=== PATIENT | male | born 1985 ===

== ENCOUNTER 2018-12-21 09:41 | Emergency (ER) | payer OTHER ==
--- NOTE | 2018-12-21 09:52 | EDM.PDOC ---
ED HPI GENERAL MEDICAL PROBLEM - General Chief Complaint: Syncope Stated Complaint: LIGHT HEADED Time Seen by Provider: 12/21/18 09:52 - History of Present Illness INITIAL COMMENTS - FREE TEXT/NARRATIVE: Patient had developed some lightheadedness and thought he might pass out. This occurred around 8:00 this morning. He still feels a little lightheaded. He' s been under a lot of stress and at times notice some tingling down his arms. He denies chest pain but has palpitations with this. No breathing difficulties or shortness of breath. Patient has not had symptoms like this in the past he denies recent illness he has not had any fevers or chills or other suggestive symptoms he is not on any routine medications. - Related Data Allergies Allergy/AdvReac Type Severity Reaction Status Date / Time chocolate flavor Allergy Blisters Verified 12/21/18 09:46 Past Medical History Cardiovascular History: Reports: Other (See Below) Other Cardiovascular History: SVT Psychiatric History: Reports: Anxiety - Past Surgical History Musculoskeletal Surgical History: Reports: Other (See Below) Other Musculoskeletal Surgeries/Procedures:: left middle finger bone graft.; osteomyelitis Social & Family History - Family History Family Medical History: Noncontributory - Caffeine Use Caffeine Use: Reports: None ED ROS GENERAL - Review of Systems Review Of Systems: See Below Constitutional: Reports: No Symptoms HEENT: Reports: No Symptoms Respiratory: Reports: No Symptoms Cardiovascular: Reports: Palpitations Endocrine: Reports: No Symptoms GI/Abdominal: Reports: No Symptoms : Reports: No Symptoms Neurological: Reports: Other (Lightheadedness) Psychiatric: Reports: Anxiety - Physical Exam Exam: See Below Exam Limited By: No Limitations General Appearance: Alert, No Apparent Distress Eye Exam: Bilateral Eye: Normal Inspection Ears: Normal External Exam, Normal Canal, Hearing Grossly Normal, Normal TMs Nose: Normal Inspection, Normal Mucosa, No Blood Throat/Mouth: Normal Inspection, Normal Lips, Normal Teeth, Normal Gums, Normal Oropharynx, Normal Voice, No Airway Compromise Head Exam: Atraumatic, Normocephalic Neck: Normal Inspection, Supple, Non-Tender, Full Range of Motion. No: Limited Range of Motion, Lymphadenopathy (L), Lymphadenopathy (R), Tender Lateral, Tender Midline Respiratory/Chest: No Respiratory Distress, Lungs Clear, Normal Breath Sounds Cardiovascular: Regular Rate, Rhythm, No Edema, No Murmur GI/Abdominal: Normal Bowel Sounds, Soft, Non-Tender Neuro Exam (Abbreviated): Alert, Oriented Back Exam: Normal Inspection. No: CVA Tenderness (L), CVA Tenderness (R) Extremities: Normal Inspection, No Pedal Edema Psychiatric: Normal Affect, Normal Mood, Anxious (Mild) Course - Vital Signs Last Recorded V/S: Last Vital Signs Temp 36.7 C 12/21/18 09:46 Pulse 88 12/21/18 09:46 Resp 15 12/21/18 09:46 BP 131/73 12/21/18 09:46 Pulse Ox 97 12/21/18 09:46 - Orders/Labs/Meds Orders: Active Orders 24 hr Category Date Time Status EKG Documentation Completion [RC] STAT Care 12/21/18 10:12 Active Labs: Laboratory Tests 12/21/18 12/21/18 Range/Units 10:36 10:36 WBC 14.99 H (4.23-9.07) K/mm3 RBC 4.82 (4.63-6.08) M/mm3 Hgb 14.5 (13.7-17.5) gm/L Hct 43.3 (40.1-51.0) % MCV 89.8 (79.0-92.2) fl MCH 30.1 (25.7-32.2) pg MCHC 33.5 (32.2-35.5) g/dl RDW Std Deviation 41.2 (35.1-43.9) fL Plt Count 239 (163-337) K/mm3 MPV 11.2 (9.4-12.3) fl Neutrophils % (Manual) 67 H (40-60) % Band Neutrophils % 0 (0-10) % Lymphocytes % (Manual) 23 (20-40) % Atypical Lymphs % 0 % Monocytes % (Manual) 5 (2-10) % Eosinophils % (Manual) 5 (0.8-7.0) % Basophils % (Manual) 0 L (0.2-1.2) Platelet Estimate Adequate RBC Morph Comment Normal Sodium 144 (136-145) mEq/L Potassium 3.8 (3.5-5.1) mEq/L Chloride 108 H (98-107) mEq/L Carbon Dioxide 25 (21-32) mEq/L Anion Gap 14.8 (5-15) BUN 15 (7-18) mg/dL Creatinine 0.8 (0.7-1.3) mg/dL Est Cr Clr Drug Dosing 155.55 mL/min Estimated GFR (MDRD) > 60 (>60) mL/min BUN/Creatinine Ratio 18.8 H (14-18) Glucose 128 H (74-106) mg/dL Calcium 8.7 (8.5-10.1) mg/dL Magnesium 2.0 (1.8-2.4) mg/dl Total Bilirubin 0.2 (0.2-1.0) mg/dL AST 16 (15-37) U/L ALT 33 (16-63) U/L Alkaline Phosphatase 94 (46-116) U/L Total Protein 7.3 (6.4-8.2) g/dl Albumin 3.6 (3.4-5.0) g/dl Globulin 3.7 gm/dL Albumin/Globulin Ratio 1.0 (1-2) Meds: Medications Discontinued Medications Generic Name Dose Route Start Last Admin Trade Name Freq PRN Reason Stop Dose Admin Lactated Ringer's 1,000 mls @ 999 mls/hr 12/21/18 11:25 12/21/18 11:49 Ringers, Lactated IV 12/21/18 12:25 999 mls/hr .BOLUS ONE Administration - Re-Assessments/Exams Free Text/Narrative Re-Assessment/Exam: 12/21/18 11:30 Patient declined any sedating medications because of his CDL 12/21/18 12:54 Patient doing much better after a liter of fluid we'll discharge home at this point Departure - Departure Time of Disposition: 12:54 Disposition: Home, Self-Care 01 Clinical Impression: Mild anxiety, Mild dehydration - Discharge Information Referrals: PCP,None [Primary Care Provider] - Forms: ED Department Discharge Additional Instructions: Return to the emergency room with any questions problems worsening symptoms. Push fluids. Follow-up in the clinic in 2 days if needed. [phone]. Follow-up with your regular provider at home in a week if needed if symptoms persist discussed getting a outpatient heart monitor. - My Orders Last 24 Hours: My Active Orders 12/21/18 10:12 EKG Documentation Completion [RC] STAT - Assessment/Plan Last 24 Hours: My Active Orders 12/21/18 10:12 EKG Documentation Completion [RC] STAT
[2018-12-21] MEDS ORDERED: Lactated Ringers 1,000 ML IV ONE (11:25)
== END 2018-12-21 13:02 | disposition home or self-care (01) ==
LOC: JD.ED 09:41
DX: E86.0 Dehydration (principal); F41.9 Anxiety disorder, unspecified; Z91.02 Food additives allergy status
CPT/HCPCS: 36415; 80053; 83735; 85007; 85027; 93005; 96360; 96361; 99284; J7120